=== PATIENT | male | born 1980 | race Caucasian/White ===

== ENCOUNTER 2020-04-01 09:05 | Emergency (ER) | payer OTHER ==
[~2020-04-01] VITALS: Ht 180.3 cm; Wt 86.1 kg
[2020-04-01] MEDS ORDERED: LIDOCAINE 1%-EPI 1:100K, 20ML SQ ONE (09:30)
[2020-04-01] MEDS ORDERED: DIPH,PERTUSS(ACELL),TET VAC/PF 0.5 ML IM-VACC ONE ×2 (09:30→09:44)
--- NOTE | 2020-04-01 09:38 | NUR ---
PT AMBULATORY TO ROOM 7 W/ C/O DEEP LARGE LACERATION TO FOREHEAD. PT STATES HE WAS WORKING W/ METAL ON A GRINDING DISC AND IT SHATTERED AND IT CAUSED LAC TO FOREHEAD. PT DENIES BEING ON BLOOD THINNERS. NO LOC. PT RESTING ON GURNEY. NADN. MONITORS APPLIED. ERP DR. HOPKINS AT BEDSIDE FOR EVAL.
[2020-04-01] MEDS ORDERED: CEFAZOLIN 1,000 MG ONE (09:44)
[2020-04-01] MEDS ORDERED: L.E.T SOLUTION TP ONE ×2 (09:44→10:00)
[2020-04-01] MEDS ORDERED: CEFAZOLIN 1,000 MG IM ONE (10:00)
[2020-04-01] MEDS ORDERED: LIDOCAINE 1%-EPI 1:100K, 30ML SQ ONE (10:00)
--- NOTE | 2020-04-01 10:27 | NUR ---
PT RESTING ON GURNEY. NADN. GARRIDO.
--- NOTE | 2020-04-01 11:00 | NUR ---
NOEMI NGUYỄN AT BEDSIDE PLACING SUTURES.
[2020-04-01] MEDS ORDERED: NEOSPORIN OINT. PKT 1 PACKET ONE (11:18)
[2020-04-01 11:27] VITALS: BP 132/76
--- NOTE | 2020-04-01 11:27 | NUR ---
PT RESTING ON [place]. NADN. GARRIDO. NOEMI NGUYỄN REMAINS AT BEDSIDE FOR SUTURE PLACEMENT.
== END 2020-04-01 12:00 | disposition home or self-care (01) ==
LOC: ED 10:25
DX: S01.81XA Laceration without foreign body of other part of head, initial encounter (principal); W22.8XXA Striking against or struck by other objects, initial encounter; Y93.89 Activity, other specified; Y92.89 Other specified places as the place of occurrence of the external cause; Y99.8 Other external cause status
CPT/HCPCS: 12054; 90471; 90715; 96372; 99284; J0690; 12053